=== PATIENT | female | born 1955 | race African-American/Black ===

== ENCOUNTER 2019-03-10 13:20 | Inpatient (IN) | payer MEDICARE ==
[~2019-03-10] VITALS: Ht 160 cm; Wt 113.9 kg
[2019-03-10] MEDS ORDERED: SODIUM CHLORIDE 0.9% 1,000 ML IV ONE (14:02)
[2019-03-10 14:47] LABS: CHLORIDE 104 mEq/L (98-107)
[2019-03-10 14:50] LABS: PROTHROMBIN TIME 9.9 sec (9.6-11.0)
[2019-03-10 14:52] LABS: ETHANOL BLOOD < 10 mg/dL
[2019-03-10 14:56] LABS: LDL CHOLESTEROL 69 mg/dL (5-100)
[2019-03-10 15:02] LABS: HEMATOCRIT. 37.3 % (36.0-48.0); HEMOGLOBIN. 12.5 g/dL (12.0-16.0); MEAN CORPUSCULAR HEMOGLOBIN 30.9 pg (28.0-32.0); MEAN CORPUSCULAR VOLUME 91.9 fL (81.0-99.0); RED BLOOD CELL COUNT 4.06 mill/uL (4.2-5.4); RED CELL DISTRIBUTION WIDTH 17.2 % (11.6-14.6)
[2019-03-10 16:13] LABS: PLATELET ESTIMATE NORMAL
[2019-03-10 16:14] LABS: MEAN PLATELET VOLUME 9.8 fl (7.4-10.4); PLATELET 274 x1000/uL (130-400)
[2019-03-10] MEDS ORDERED: MAGNESIUM/ALUMINUM HYDROXIDE/SIMETHICONE 30ML UDC PO PRN (16:30)
[2019-03-10] MEDS ORDERED: ACETAMINOPHEN 325MG TABLET PO PRN (16:30)
[2019-03-10] MEDS ORDERED: CLONIDINE 0.1MG TABLET PO PRN (16:30)
[2019-03-10] MEDS ORDERED: GUAIFENESIN 200MG/10ML SUGAR FREE UDC PO PRN (16:30)
[2019-03-10] MEDS ORDERED: ONDANSETRON HCL 4MG/2ML INJ IV PRN (16:30)
[2019-03-10] MEDS ORDERED: HYDROCODONE/ACETAMINOPHEN 5/325MG TABLET PO PRN (16:30)
[2019-03-10] MEDS ORDERED: DOCUSATE SODIUM 100MG CAPSULE PO PRN (16:30)
[2019-03-10 16:44] LABS: BG BASE EXCESS -4.9 mmol/L (-2.0-2.0); BG CARBOXYHEMOGLOBIN 1.9 % (0.5-1.5); BG DEOXYHEMOGLOBIN 0.7 % (0.0-5.0); BG FRACTION INSPIRED OXYGEN 100; BG HCO3 ACT 21.4 mmol/L (22.0-26.0); BG METHEMOGLOBIN 0.2 % (0.0-1.5); BG OXYGEN SATURATION 99.3 % (92.0-98.5); BG OXYHEMOGLOBIN 97.2 % (94.0-97.0); BG PCO2 44.3 mmHg (35.0-45.0); BG PH 7.301 (7.350-7.450); BG PO2 463.8 mmHg (75.0-100.0); BG SAMPLE SITE RIGHT RADIAL; BG VENT MODE MASK - NRB
[2019-03-10 18:00] VITALS: BP 138/79
[2019-03-10 18:28] VITALS: BP 138/79
[2019-03-10 20:00] VITALS: BP 140/59
[2019-03-10] MEDS: METOPROLOL TARTRATE 25MG TABLET PO SCH (20:12)
[2019-03-10] MEDS ORDERED: DEXTROSE 50% WATER 50ML SYRINGE IV PRN (21:30)
[2019-03-10] MEDS: INSULIN LISPRO 100 UNITS/ML SUBCUT SCH (21:50)
[2019-03-10 22:01] VITALS: BP 86/49
[2019-03-10] MEDS: BLOOD SUGAR DIAGNOSTIC STRIP TEST SCH (22:44)
[2019-03-11] VITALS (12 sets, daily range): BP systolic 94–141; BP diastolic 60–95
[2019-03-11 06:58] LABS: BASOPHILS % 0.7 % (0.0-2.0); HEMOGLOBIN. 11.8 g/dL (12.0-16.0); LYMPHOCYTES % 15.6 % (20.0-50.0); MEAN CORPUSCULAR HEMOGLOBIN 31.7 pg (28.0-32.0); MEAN CORPUSCULAR VOLUME 93.8 fL (81.0-99.0); MEAN PLATELET VOLUME 9.1 fl (7.4-10.4); MONOCYTES % 10.5 % (2.0-8.0); NEUTROPHILS % 72.2 % (40.0-76.0); PLATELET 245 x1000/uL (130-400); RED BLOOD CELL COUNT 3.73 mill/uL (4.2-5.4); RED CELL DISTRIBUTION WIDTH 16.8 % (11.6-14.6)
[2019-03-11 07:11] LABS: CHLORIDE 107 mEq/L (98-107)
[2019-03-11 07:27] LABS: LDL CHOLESTEROL 63 mg/dL (5-100)
[2019-03-11 07:29] LABS: HDL CHOLESTEROL 31 mg/dL (40-59)
[2019-03-11] MEDS: BLOOD SUGAR DIAGNOSTIC STRIP TEST SCH ×4 (07:30→21:57)
[2019-03-11] MEDS: INSULIN LISPRO 100 UNITS/ML SUBCUT SCH ×4 (08:00→21:00)
[2019-03-11] MEDS: ASPIRIN 81MG EC TABLET PO SCH (08:58)
[2019-03-11] MEDS: METOPROLOL TARTRATE 25MG TABLET PO SCH ×2 (09:02→22:05)
[2019-03-11] MEDS ORDERED: ATOR20TA65 MT (12:21)
[2019-03-11] MEDS ORDERED: CANA100T MT (12:21)
[2019-03-11] MEDS ORDERED: CLOP75TA33 MT (12:21)
[2019-03-11] MEDS ORDERED: ASPI-1158 MT (12:21)
[2019-03-11] MEDS ORDERED: METO5TAB69 PO (12:21)
[2019-03-11] MEDS ORDERED: METO-385 MT (12:21)
[2019-03-11] MEDS ORDERED: FAMO20TA8 MT (12:21)
[2019-03-11] MEDS ORDERED: CLOT15CR5 TP (12:21)
[2019-03-11] MEDS ORDERED: NAPR-677 MT (12:21)
[2019-03-11] MEDS ORDERED: METF500S7 PO (12:21)
[2019-03-11] MEDS ORDERED: PREG200C MT (12:21)
[2019-03-11] MEDS ORDERED: LORA10CA MT (12:21)
[2019-03-11] MEDS ORDERED: DULA1.5P SQ (12:21)
[2019-03-11] MEDS ORDERED: LISI40TA4 MT (12:21)
[2019-03-11] MEDS ORDERED: MONT10TA21 MT (12:21)
[2019-03-11] MEDS ORDERED: QUET200T29 MT (12:21)
[2019-03-11] MEDS ORDERED: FURO40TA5 MT (12:21)
[2019-03-11] MEDS ORDERED: DULO60CA64 MT (12:21)
[2019-03-11] MEDS: CLOPIDOGREL 75MG TABLET PO SCH (13:07)
[2019-03-11] MEDS ORDERED: SODIUM POLYSTYRENE SULFONATE 15 G/60 ML BOT PO NR (14:00)
[2019-03-11 15:34] LABS: CLARITY URINE CLEAR (CLEAR); COLOR URINE YELLOW (YELLOW); KETONES URINE NEGATIVE (NEGATIVE); LEUKOCYTE ESTERASE URINE 1+ (NEGATIVE); NITRITE URINE NEGATIVE (NEGATIVE); OCCULT BLOOD URINE NEGATIVE (NEGATIVE); PROTEIN URINE NEGATIVE (NEGATIVE); SPECIFIC GRAVITY URINE 1.012 (1.005-1.030); UROBILINOGEN URINE 0.2 E.U./dL (0.2-1.0)
[2019-03-11 16:57] LABS: *AMPHETAMINES SCREEN URINE NEGATIVE (NEGATIVE); *BARBITURATES SCREEN URINE NEGATIVE (NEGATIVE); *BENZODIAZEPINES SCREEN URINE NEGATIVE (NEGATIVE); *COCAINE SCREEN URINE NEGATIVE (NEGATIVE); METHADONE URINE SCREEN NEGATIVE (NEGATIVE); OPIATES URINE SCREEN NEGATIVE (NEGATIVE)
[2019-03-11 16:58] LABS: CANNABINOID URINE SCREEN NEGATIVE (NEGATIVE); PHENCYCLIDINE URINE SCREEN NEGATIVE (NEGATIVE)
[2019-03-11 17:24] LABS: CREATINE KINASE 126 IU/L (26-192)
[2019-03-11 17:30] LABS: FOLIC ACID (FOLATE) SERUM >20 ng/mL ng/mL (>5.38)
[2019-03-11 17:41] LABS: VITAMIN B12 SERUM 1882 pg/mL (211-911)
[2019-03-12] VITALS (12 sets, daily range): BP systolic 95–161; BP diastolic 36–124
[2019-03-12 07:44] LABS: BASOPHILS % 0.7 % (0.0-2.0); EOSINOPHILS % 0.9 % (0.0-5.0); HEMATOCRIT. 35.1 % (36.0-48.0); HEMOGLOBIN. 11.7 g/dL (12.0-16.0); LYMPHOCYTES % 21.4 % (20.0-50.0); MEAN CORPUSCULAR VOLUME 93.1 fL (81.0-99.0); MEAN PLATELET VOLUME 9.1 fl (7.4-10.4); MONOCYTES % 8.7 % (2.0-8.0); NEUTROPHILS % 68.3 % (40.0-76.0); PLATELET 246 x1000/uL (130-400); RED BLOOD CELL COUNT 3.77 mill/uL (4.2-5.4); RED CELL DISTRIBUTION WIDTH 16.7 % (11.6-14.6)
[2019-03-12 07:46] LABS: CHLORIDE 112 mEq/L (98-107)
[2019-03-12] MEDS: BLOOD SUGAR DIAGNOSTIC STRIP TEST SCH ×4 (07:58→20:09)
[2019-03-12] MEDS: INSULIN LISPRO 100 UNITS/ML SUBCUT SCH ×4 (07:58→20:20)
[2019-03-12] MEDS: ASPIRIN 81MG EC TABLET PO SCH (08:00)
[2019-03-12] MEDS: CLOPIDOGREL 75MG TABLET PO SCH (08:01)
[2019-03-12] MEDS: METOPROLOL TARTRATE 25MG TABLET PO SCH ×2 (08:05→20:21)
[2019-03-12 08:13] LABS: PHOSPHORUS 2.8 mg/dL (2.5-4.9)
[2019-03-12 08:14] LABS: CREATINE KINASE 101 IU/L (26-192)
[2019-03-13] VITALS (12 sets, daily range): BP systolic 101–163; BP diastolic 52–111
[2019-03-13 06:18] LABS: BASOPHILS % 0.8 % (0.0-2.0); EOSINOPHILS % 1.3 % (0.0-5.0); HEMATOCRIT. 36.4 % (36.0-48.0); HEMOGLOBIN. 12.3 g/dL (12.0-16.0); LYMPHOCYTES % 23.7 % (20.0-50.0); MEAN CORPUSCULAR HEMOGLOBIN 31.3 pg (28.0-32.0); MEAN CORPUSCULAR VOLUME 92.7 fL (81.0-99.0); MEAN PLATELET VOLUME 9.1 fl (7.4-10.4); MONOCYTES % 7.9 % (2.0-8.0); NEUTROPHILS % 66.3 % (40.0-76.0); PLATELET 266 x1000/uL (130-400); RED BLOOD CELL COUNT 3.93 mill/uL (4.2-5.4); RED CELL DISTRIBUTION WIDTH 16.5 % (11.6-14.6)
[2019-03-13 06:25] LABS: CHLORIDE 114 mEq/L (98-107)
[2019-03-13 06:31] LABS: PHOSPHORUS 2.6 mg/dL (2.5-4.9)
[2019-03-13] MEDS: INSULIN LISPRO 100 UNITS/ML SUBCUT SCH ×4 (08:00→21:00)
[2019-03-13] MEDS: CLOPIDOGREL 75MG TABLET PO SCH (08:23)
[2019-03-13] MEDS: METOPROLOL TARTRATE 25MG TABLET PO SCH ×2 (08:23→21:04)
[2019-03-13] MEDS: BLOOD SUGAR DIAGNOSTIC STRIP TEST SCH ×4 (08:23→21:02)
[2019-03-13] MEDS: ASPIRIN 81MG EC TABLET PO SCH (08:23)
[2019-03-13] MEDS ORDERED: ATORVASTATIN CALCIUM 20MG TABLET PO SCH (11:15)
[2019-03-13] MEDS: DULOXETINE HCL 60MG DR CAPSULE PO SCH (14:35)
[2019-03-13] MEDS: MONTELUKAST SODIUM 10MG TABLET PO SCH (17:51)
[2019-03-13 19:50] LABS: T4 FREE 0.95 ng/dL (0.76-1.46)
[2019-03-13] MEDS ORDERED: QUETIAPINE FUMARATE 50MG TABLET PO SCH (21:00)
[2019-03-14] VITALS (13 sets, daily range): BP systolic 101–158; BP diastolic 59–93
[2019-03-14 01:44] LABS: CREATINE KINASE 80 IU/L (26-192); CREATINE KINASE MB FRACTION < 1.0 ng/mL (0.5-3.6)
[2019-03-14] MEDS: BLOOD SUGAR DIAGNOSTIC STRIP TEST SCH ×2 (07:30→12:30)
[2019-03-14 07:59] LABS: CHLORIDE 114 mEq/L (98-107)
[2019-03-14] MEDS: INSULIN LISPRO 100 UNITS/ML SUBCUT SCH ×2 (08:00→13:00)
[2019-03-14 08:02] LABS: BASOPHILS % 1.2 % (0.0-2.0); EOSINOPHILS % 2.2 % (0.0-5.0); HEMATOCRIT. 35.8 % (36.0-48.0); HEMOGLOBIN. 12.3 g/dL (12.0-16.0); LYMPHOCYTES % 26.9 % (20.0-50.0); MEAN CORPUSCULAR HEMOGLOBIN 31.3 pg (28.0-32.0); MEAN CORPUSCULAR VOLUME 91.3 fL (81.0-99.0); MEAN PLATELET VOLUME 8.9 fl (7.4-10.4); MONOCYTES % 8.6 % (2.0-8.0); NEUTROPHILS % 61.1 % (40.0-76.0); PLATELET 249 x1000/uL (130-400); RED BLOOD CELL COUNT 3.92 mill/uL (4.2-5.4); RED CELL DISTRIBUTION WIDTH 16.2 % (11.6-14.6)
[2019-03-14 08:19] LABS: PHOSPHORUS 3.4 mg/dL (2.5-4.9)
[2019-03-14 08:22] LABS: CREATINE KINASE 63 IU/L (26-192)
[2019-03-14 08:26] LABS: CREATINE KINASE MB FRACTION < 1.0 ng/mL (0.5-3.6)
[2019-03-14] MEDS: DULOXETINE HCL 60MG DR CAPSULE PO SCH (08:53)
[2019-03-14] MEDS: CLOPIDOGREL 75MG TABLET PO SCH (08:53)
[2019-03-14] MEDS: METOPROLOL TARTRATE 25MG TABLET PO SCH (08:53)
[2019-03-14] MEDS: ASPIRIN 81MG EC TABLET PO SCH (08:53)
[2019-03-14] MEDS ORDERED: MAGNESIUM 2 G PREMIX 50 ML IV NR (09:00)
[2019-03-14 16:57] LABS: CREATINE KINASE 62 IU/L (26-192)
[2019-03-14 16:58] LABS: CREATINE KINASE MB FRACTION < 1.0 ng/mL (0.5-3.6)
[2019-03-14] MEDS: MONTELUKAST SODIUM 10MG TABLET PO SCH (17:18)
[2019-03-15 19:11] LABS: 25-HYDROXY VITAMIN D3 34 ng/mL (.)
== END 2019-03-14 17:20 | disposition home or self-care (01) | DRG 682 ==
LOC: ER 13:20 → 5EST 15:41 → EDBEDREQ 15:42 → SUPCPDRO 16:17 → ENRESERV 17:20
PROVIDERS: ADMIT Hospitalist; ATTEND Hospitalist
DX: N17.9 Acute kidney failure, unspecified (principal); J18.9 Pneumonia, unspecified organism; G45.9 Transient cerebral ischemic attack, unspecified; I69.354 Hemiplegia and hemiparesis following cerebral infarction affecting left non-dominant side; R47.01 Aphasia; D64.9 Anemia, unspecified; E11.22 Type 2 diabetes mellitus with diabetic chronic kidney disease; E11.40 Type 2 diabetes mellitus with diabetic neuropathy, unspecified; I12.9 Hypertensive chronic kidney disease with stage 1 through stage 4 chronic kidney disease, or unspecified chronic kidney disease; E78.5 Hyperlipidemia, unspecified; E87.5 Hyperkalemia; F17.210 Nicotine dependence, cigarettes, uncomplicated; N18.9 Chronic kidney disease, unspecified; R47.1 Dysarthria and anarthria; R26.9 Unspecified abnormalities of gait and mobility; R13.10 Dysphagia, unspecified; E78.00 Pure hypercholesterolemia, unspecified; I48.0 Paroxysmal atrial fibrillation; Z82.49 Family history of ischemic heart disease and other diseases of the circulatory system; Z83.3 Family history of diabetes mellitus; Z91.81 History of falling; Z88.0 Allergy status to penicillin
CPT/HCPCS: 36415; 36600; 70551; 71045; 76770; 78582; 80048; 80061; 80305; 80320; 81003; 82140; 82306; 82375; 82550; 82553; 82607; 82746; 82805; 82962; 83036; 83721; 83735; 83880; 84100; 84439; 84443; 84484; 85379; 92523; 92610; 93005; 93306; 93880; 97162; 97166; 99285; A6261; A9558; J1815; J3475; J7030; G0480